=== PATIENT | male | born 1960 | race Caucasian/White ===

== ENCOUNTER → 2017-10-25 15:40 | Outpatient (CLI) | payer BC, SELFPAY ==
--- NOTE | 2017-10-25 10:20 | COLBX_PTH ---
PATIENT: EDMUNDO TALAMANTES LOC: [facility] U#:[id number] AGE/SX: 65/M ROOM: RE10/25/[address]: Dr. Brian Sherwood MD : 1960 BED: DIS: SPEC #: [id number] RECD: 10/25/17 15:37 STATUS: KEV LUIS #: [id number] MARY: 10/25/17 10:[address]: Brian Sherwood DEPT: SURGICAL PATHOLOGY RECD BY: Jourdan Mac ENTERED: 10/28/17 13:05 SP TYPE: COLON BX OTHR DR: Dr. Edmundo Mark MD [facility] Tissues: A - Transverse colon B - Sigmoid colon biopsy Procedures: Surgery Specimen Level IV HEADER OPERATION: Colonoscopy with polypectomy PRE-OP DIAGNOSIS: Screening / polyp TISSUE SUBMITTED: A ? Transverse colon polyp, rule out adenoma, B ? Sigmoid polyp, rule out adenoma MICROSCOPIC DIAGNOSIS A. Transverse colon, biopsy: Tubular adenoma. B. Sigmoid colon polyp, biopsy: Tubular adenoma. AM:austin 10/29/17 COMMENT B. Adenomatous change is not seen at the cauterized stalk margin. Case has been reviewed in consultation with Dr. Fabian who concurs with the above diagnosis. IDC:[id number] MICROSCOPIC DESCRIPTION Slides are reviewed. GROSS DESCRIPTION A - Received in fixative is one container labeled with the patient's name and designated transverse colon. The specimen consists of one irregular fragment of light delatorre soft tissue that measures 0.6 x 0.5 x 0.2 cm. The specimen is totally submitted in one cassette. B - Received in fixative is one container labeled with the patient's name and designated sigmoid colon. The specimen consists of a delatorre polyp measuring 1 x 1 x 0.5 cm. The presumed margin is inked. The specimen is trisected and totally submitted in one cassette. / AM:austin 10/28/17 TC:5 CPT: 44350 x2
== END ==
PROVIDERS: Family Provider Family Medicine; PCP Family Medicine; Visit Provider Internal Medicine Gastroenterology
DX: Z12.11 Encounter for screening for malignant neoplasm of colon (principal); K63.5 Polyp of colon
CPT/HCPCS: 88305

== ENCOUNTER → 2018-08-30 07:54 | Outpatient (CLI) | payer BC, SELFPAY ==
[2018-08-30 09:11] LABS: Anion Gap 5 (5-15); BUN 10 mg/dL (7-18); BUN/Creat Ratio 10.5 RATIO (10-20); Calcium,Total 8.8 mg/dL (8.5-10.1); Chloride 106 mmol/L (98-107); Cholesterol 241 mg/dL (200); Creatinine, Serum 0.95 mg/dL (0.70-1.30); EST Glomerular Filtration Rate 87 mL/min (>60); Est Glom Filt Rate - Afr Amer 105 mL/min (>60); Glucose 92 mg/dL (74-106); High Density Lipoprotein 48 mg/dL; PSA,Total - Annual Screen 0.55 ng/mL (0.00-4.00); Potassium 4.9 mmol/L (3.5-5.1); Sodium Level 142 mmol/L (136-145); Triglycerides 201 mg/dL; Very Low Density Lipoprotein 40 mg/dL (5-40)
== END ==
PROVIDERS: Family Provider Family Medicine; PCP Family Medicine; Referring Provider Family Medicine; Visit Provider Family Medicine
DX: R03.0 Elevated blood-pressure reading, without diagnosis of hypertension (principal); N40.0 Benign prostatic hyperplasia without lower urinary tract symptoms
CPT/HCPCS: 36415; 80048; 80061; 84153; G0103

== ENCOUNTER → 2019-09-04 07:22 | Outpatient (CLI) | payer BC, SELFPAY ==
[2019-09-04 09:22] LABS: Anion Gap 3 (5-15); BUN 13 mg/dL (7-18); BUN/Creat Ratio 13.3 RATIO (10-20); Calcium,Total 8.4 mg/dL (8.5-10.1); Chloride 105 mmol/L (98-107); Cholesterol 201 mg/dL (200); Creatinine, Serum 0.98 mg/dL (0.70-1.30); EST Glomerular Filtration Rate 84 mL/min (>60); Est Glom Filt Rate - Afr Amer 102 mL/min (>60); Glucose 96 mg/dL (74-106); High Density Lipoprotein 45 mg/dL; PSA,Total - Annual Screen 0.44 ng/mL (0.00-4.00); Sodium Level 139 mmol/L (136-145); Triglycerides 138 mg/dL; Very Low Density Lipoprotein 28 mg/dL (5-40)
== END ==
PROVIDERS: Family Provider Family Medicine; PCP Family Medicine; Referring Provider Family Medicine; Visit Provider Family Medicine
DX: Z13.220 Encounter for screening for lipoid disorders (principal); Z13.1 Encounter for screening for diabetes mellitus; N40.0 Benign prostatic hyperplasia without lower urinary tract symptoms
CPT/HCPCS: 36415; 80048; 80061; 84153; G0103

== ENCOUNTER → 2020-07-23 08:07 | Outpatient (CLI) | payer BC, SELFPAY ==
[2020-07-23 09:16] LABS: Anion Gap 5 (5-15); BUN 10 mg/dL (7-18); BUN/Creat Ratio 10.7 RATIO (10-20); Calcium,Total 8.7 mg/dL (8.5-10.1); Chloride 107 mmol/L (98-107); Cholesterol 198 mg/dL (200); Creatinine, Serum 0.93 mg/dL (0.70-1.30); EST Glomerular Filtration Rate 88 mL/min (>60); Est Glom Filt Rate - Afr Amer 107 mL/min (>60); Glucose 90 mg/dL (74-106); High Density Lipoprotein 40 mg/dL; Potassium 4.5 mmol/L (3.5-5.1); Sodium Level 141 mmol/L (136-145); Triglycerides 144 mg/dL; Very Low Density Lipoprotein 29 mg/dL (5-40)
[2020-07-23 09:30] LABS: Microalbumin,Random Urine 10.6 mg/L (NO RANGE EST.)
== END ==
PROVIDERS: PCP Family Medicine; Referring Provider Family Medicine; Visit Provider Family Medicine
DX: Z00.00 Encounter for general adult medical examination without abnormal findings (principal)
CPT/HCPCS: 36415; 80048; 80061; 82043

== ENCOUNTER → 2021-02-15 09:26 | Outpatient (CLI) | payer BC, SELFPAY ==
--- NOTE | 2021-02-15 09:29 | RAD_ITS ---
STUDY: X-RAY - LEFT ELBOW REASON FOR EXAM: Male, 61 years old. Elbow pain. TECHNIQUE: 3 view(s) of the elbow on 4 images. COMPARISON: None. FINDINGS: Normal visualized humerus, radius and ulna. Normal radiocapitellar and ulnotrochlear articulations. Ossification adjacent to the lateral epicondyles which may represent calcific tendinitis. RAD/Elbow min 3 Views IMPRESSION: No acute abnormality. Electronically Signed: Porter Hilliard MD at 14:01 EDT , Service support ,
== END ==
PROVIDERS: PCP Family Medicine; Referring Provider Family Medicine; Visit Provider Family Medicine
DX: M25.529 Pain in unspecified elbow (principal)
CPT/HCPCS: 73080

== ENCOUNTER → 2021-05-10 17:02 | Outpatient (CLI) | payer BC, SELFPAY | PROVIDERS: PCP Family Medicine; Visit Provider Family Medicine | DX: Z20.822 Contact with and (suspected) exposure to COVID-19 (principal) | CPT/HCPCS: 87635; U0005; U0003 ==

== ENCOUNTER 2021-10-10 14:58 | Outpatient (CLI) | payer BC, SELFPAY ==
--- NOTE | 2021-10-10 15:05 | ECHOCS_ITS ---
Reason For Study: MURMUR Procedure This was a 2D Doppler, Color Flow transthoracic echocardiogram. The study was technically difficult. Contrast injection was performed. Exam performed in department. Left Ventricle Normal LV size. Left ventricular systolic function is normal. The estimated ejection fraction is 65 %. Stage 3 diastolic dysfunction. No regional wall motion abnormalities noted. Right Ventricle Normal RV size. Normal systolic function. Atria Normal left atrium. Normal right atrium. Mitral Valve Normal mitral valve. Tricuspid Valve Normal tricuspid valve. Mild (1+) tricuspid valve insufficiency. Pulmonary artery systolic pressure is 42 mmHg. Aortic Valve Trisinus/trileaflet aortic valve. Pulmonic Valve Normal pulmonic valve. Great Vessels Normal aortic root. The pulmonary artery is normal size. Normal inferior vena cava. Pericardium/Pleural No pericardial effusion. Medication 22 gauge I.V. with prn adaptor inserted into right arm. Diluted definity 2.0ml given slow IV push to enhance endocardial definition. MMode/2D Measurements & Calculations LVIDd: 4.9 cm IVSd: 0.88 cm Ao root diam: 3.7 cm LVIDs: 3.0 cm LVPWd: 0.99 cm RVDd: 3.9 cm FS: 39.8 % LAV(MOD-bp): 56.7 ml LVAd ap4: 41.0 cm2 LVAd ap2: 31.2 cm2 LAV(MOD-bp) Indexed: 26.9 ml/m2 LVLd ap4: 8.9 cm LVLd ap2: 8.6 cm LAV(MOD-sp2): 57.3 ml EDV(MOD-sp4): 155.4 ml EDV(MOD-sp2): 93.6 ml LAV(MOD-sp4): 53.9 ml EDV(sp4-el): 160.4 ml EDV(sp2-el): 96.1 ml LVAs ap4: 15.3 cm2 LVAs ap2: 12.6 cm2 LVLs ap4: 6.1 cm LVLs ap2: 5.8 cm ESV(MOD-sp4): 31.8 ml ESV(MOD-sp2): 22.2 ml ESV(sp4-el): 32.7 ml ESV(sp2-el): 23.2 ml EF(MOD-sp4): 79.6 % EF(MOD-sp2): 76.3 % EF(sp4-el): 79.6 % SV(MOD-sp4): 123.7 ml SV(MOD-sp2): 71.4 ml SV(sp4-el): 127.7 ml LA A4 area: 19.9 cm2 LA dimension(2D): 3.9 cm RA A4 area: 18.1 cm2 Doppler Measurements & Calculations MV E max mike: 119.6 cm/sec Ao V2 max: 174.7 cm/sec LV V1 max: 167.2 cm/sec MV A max mike: 64.4 cm/sec Ao max P.2 mmHg LV V1 max P.2 mmHg MV E/A: 1.9 TR max mike: 305.3 cm/sec TR max P.3 mmHg ECHO/Echo Complete W/ Contrast Interpretation Summary Normal LV size. Left ventricular systolic function is normal. The estimated ejection fraction is 65 %. Stage 3 diastolic dysfunction. Pulmonary artery systolic pressure is 42 mmHg. Contrast injection was performed. Ordering Physician: Ayaz Mark Referring Physician: Ayaz Mark Performed By: Denisse Robison, ENRIKE, RVT
== END 2021-10-10 23:59 | disposition short-term general hospital (02) ==
LOC: CVS 15:03
PROVIDERS: PCP Family Medicine; Referring Provider Family Medicine; Visit Provider Family Medicine
DX: R01.1 Cardiac murmur, unspecified (principal)
CPT/HCPCS: 93306; Q9957; A4216; C8929

== ENCOUNTER 2021-12-11 06:42 | Outpatient (CLI) | payer BC, SELFPAY | END 2021-12-11 23:59 | disposition home or self-care (01) | PROVIDERS: PCP Family Medicine; Visit Provider Internal Medicine Critical Care Medicine | DX: G47.30 Sleep apnea, unspecified (principal) | CPT/HCPCS: 95806 ==

== ENCOUNTER → 2022-01-12 | Outpatient (CLI) | payer BC, SELFPAY ==
--- NOTE | 2022-01-12 10:34 | RAD_ITS ---
STUDY: X-RAY - LEFT ELBOW REASON FOR EXAM: Male, 62 years old. Pain. TECHNIQUE: 3 view(s) of the elbow. COMPARISON: 02/15/2021. FINDINGS: Normal visualized humerus, radius and ulna. Normal radiocapitellar and ulnotrochlear articulations. Small calcifications projected over the region of the lateral collateral ligament proximally, likely representing calcific tendinitis. 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 No other abnormality. Electronically Signed: Porter Hilliard MD at 11:11 EDT ,
== END | disposition home or self-care (01) ==
LOC: MTRAD 10:32
PROVIDERS: PCP Family Medicine; Referring Provider Family Medicine; Visit Provider Family Medicine
DX: M25.522 Pain in left elbow (principal)
CPT/HCPCS: 73080

== ENCOUNTER → 2022-09-14 | Outpatient (CLI) | payer BC, SELFPAY ==
[2022-09-14 17:10] LABS: PSA,Total - Annual Screen 1.25 ng/mL (0.00-4.00)
== END | disposition home or self-care (01) ==
LOC: LAB 15:29
PROVIDERS: PCP Family Medicine; Referring Provider Urology; Visit Provider Urology
DX: R35.1 Nocturia (principal); R53.83 Other fatigue
CPT/HCPCS: 84153; 84403; G0103

== ENCOUNTER 2023-10-18 19:24 | Emergency (ER) | payer BC, SELFPAY ==
[2023-10-18 19:26] VITALS: BP 148/69; PULSE 89; RESP 18; TEMP 36.6; O2SAT 95; BMI 34.9
[2023-10-18 19:59] VITALS: O2SAT 98
--- NOTE | 2023-10-18 20:00 | RAD_ITS ---
EXAM: XR CHEST, 1 VIEW CLINICAL INDICATION: chest pain TECHNIQUE: Frontal view of the chest. COMPARISON: No relevant prior studies available. FINDINGS: LUNGS AND PLEURAL SPACES: No significant abnormality. No consolidation or edema. No pneumothorax. No effusion. HEART: No significant abnormality. Cardiac silhouette not enlarged. MEDIASTINUM: Central airways and mediastinal contour are unremarkable. BONES/JOINTS: No significant abnormality. No acute fracture. SOFT TISSUES: No significant abnormality. RAD/Chest 1 View (Portable) IMPRESSION: No radiographic evidence of acute cardiopulmonary disease. Electronically Signed: Abner Avilez DO at 20:30 EST ,
--- NOTE | 2023-10-18 20:03 | EDS_ITS ---
HPI <LESLIE Lopez - Last Filed: 10/18/23 22:03> History of Present Illness Chief Complaint: Chest Pain Narrative Narrative: 63-year-old male with no significant past medical history developed midsternal chest pain around 5:30 PM while doing laundry. He states it feels like a throbbing sensation and occasionally radiates towards the left shoulder. No pain in the jaw or down the arm. No shortness of breath, nausea or vomiting, or diaphoresis. He has had a lingering cough since when he had a viral illness but it is not worsened and he has no recent fever. He smokes about 6 cigarettes a day. He has no personal cardiac history. He states he had normal stress testing about 10 years ago. No family cardiac history. No history of DVT/PE or risk factors. PFSH <LESLIE Lopez - Last Filed: 10/18/23 22:03> [facility], [facility] Home Medications doxazosin 4 mg tablet 4 mg PO DAILY 11/08/21 [History Last Taken Unknown] tadalafil 5 mg tablet 5 mg PO DAILY 11/08/21 [History Last Taken Unknown] Allergy/AdvReac Type Severity Reaction Status Date / Time acetaminophen AdvReac Hives Verified 10/18/23 19:28 Surgical History (Reviewed 12/22/21 @ 14:33 by Gabbi Foreman BREAKER MACHINE TENDER, BREAKER MACHINE TENDER-C) H/O removal of cyst Social History Smoking Status: Former smoker quit date: 09/09/11 pack-years: 34 ROS <LESLIE Lopez - Last Filed: 10/18/23 22:03> ROS ED ROS Narrative Constitutional: Negative for fever, chills, malaise. CVS: Positive for chest pain. Negative for syncope. Respiratory: Positive for cough. Negative for shortness of breath. GI: Negative for abdominal pain, nausea, vomiting. Neuro: Negative for headache. EXAM <LESLIE Lopez - Last Filed: 10/18/23 22:03> Physical Exam Narrative Exam Narrative: CONST: Patient sitting in no acute distress. EYES: Normal inspection. NECK: Normal inspection. RESP: No respiratory distress, CTAB. CVS: Regular rate and rhythm, no murmur, no gallop. ABD: Soft and nontender, no guarding or rebound, nondistended. SKIN: Color normal, no rash, warm, dry, intact. EXTREMITIES: Normal appearance, no pedal edema. NEURO: Oriented x4. PSYCH: Normal affect. Const Vital Signs: 10/18/23 19:26 10/18/23 19:59 Temperature 97.9 F Temperature Source Temporal Pulse Rate 89 Respiratory Rate 18 Blood Pressure 148/69 H Blood Pressure Mean 95 Pulse Ox 95 98 Oxygen Delivery Method Room Air Room Air <Mitch Dumont MD - Last Filed: 10/18/23 22:52> Physical Exam Const Vital Signs: 10/18/23 19:26 10/18/23 19:59 Temperature 97.9 F Temperature Source Temporal Pulse Rate 89 Respiratory Rate 18 Blood Pressure 148/69 H Blood Pressure Mean 95 Pulse Ox 95 98 Oxygen Delivery Method Room Air Room Air MDM <LESLIE Lopez - Last Filed: 10/18/23 22:03> [facility] MDM Narrative Medical decision making narrative: History gathered from: Patient and Patient presents with chest pain that radiates toward his left shoulder that started at 5:30 PM. He appears well and nontoxic with stable vital signs. Normal cardiopulmonary exam. No chest or abdominal tenderness. No clinical signs of DVT. CBC and BMP are unremarkable. EKG is sinus rhythm with no ischemic changes. Troponin is 10, delta pending. CXR shows no acute process. Patient was treated with aspirin 325 mg and plan is if serial cardiac enzymes are negative he can follow-up for outpatient stress test. Lab Data Attestation: I reviewed the patient's lab results. Labs: Laboratory Results - last 24 hr 10/18/23 10/18/23 19:55 22:00 WBC 11.6 H RBC 4.51 L Hgb 15.3 Hct 43.7 MCV 96.9 H MCH 33.9 H MCHC 35.0 RDW Std Deviation 44.3 H RDW Coeff of Josey 12.4 Plt Count 277 MPV 9.6 Immature Gran % (Auto) 0.300 Neut % (Auto) 74.5 H Lymph % (Auto) 12.8 L [place] % (Auto) 10.8 H Eos % (Auto) 1.0 Baso % (Auto) 0.6 Absolute Neuts (auto) 8.6 H Absolute Lymphs (auto) 1.48 Nucleated RBC % 0 Sodium 139 Potassium 3.5 Chloride 107 Carbon Dioxide 25.0 Anion Gap 7 BUN 9 Creatinine 0.92 Estim Creat Clear Calc 98.74 Est GFR (MDRD) Af Amer 107 Est GFR (MDRD) Non-Af 89 BUN/Creatinine Ratio 9.8 L Glucose 140 H Calcium 9.2 Troponin I High Sens 10 10 Radiography Diagnostic Testing: Clinical Impression(s) from Imaging Studies Chest X-Ray 10/18/23 20:00 IMPRESSION: No radiographic evidence of acute cardiopulmonary disease. Electronically Signed: Abner Avilez DO at 20:30 EST , ED attending interpretation of 1-view chest x-ray shows normal heart size, no acute infiltrate, edema, or effusion. EKG Initial EKG: Attestation: I personally reviewed and interpreted this EKG as follows: Interpretation: Sinus Rhythm and No Acute Injury Pattern Comments: Normal sinus rhythm 84 bpm Normal intervals, no acute ischemic changes <Mitch Dumont MD - Last Filed: 10/18/23 22:52> MDM MDM Narrative Medical decision making narrative: History gathered from: Patient and Patient presents with chest pain that radiates toward his left shoulder that started at 5:30 PM. He appears well and nontoxic with stable vital signs. Normal cardiopulmonary exam. No chest or abdominal tenderness. No clinical signs of DVT. CBC and BMP are unremarkable. EKG is sinus rhythm with no ischemic changes. Troponin is 10, delta pending. CXR shows no acute process. Patient was treated with aspirin 325 mg and plan is if serial cardiac enzymes are negative he can follow-up for outpatient stress test. Dr. Dumont: I have personally performed a face to face assessment of the patient and have reviewed the MARIELLA Note. I performed a substantive portion of the visit including all aspects of the following. My love findings include: History is chest pain. Exam is afebrile. Vital signs noted. Regular rate and rhythm. Lungs clear to auscultation bilaterally. Abdomen soft nontender with normoactive bowel sounds. Medical Decision Making: Check EKG. Check chest x-ray. Chest x-ray 1 view interpreted by myself independently shows no evidence of pneumothorax or pneumonia. I reviewed the radiology report which confirms my independent interpretation. Serial troponins show no delta as initial is 10 and repeat is 10 at 2 hours. At this point in time, I feel he can be discharged safely home with follow-up. Blood pressure is now 121 systolic with a heart rate in the 70s. Disposition is discharged home in stable condition. Other additions or changes: [None] History & Record Review Discussion w/independent historian: Patient and Family Lab Data Labs: Laboratory Results - last 24 hr 10/18/23 10/18/23 19:55 22:00 WBC 11.6 H RBC 4.51 L Hgb 15.3 Hct 43.7 MCV 96.9 H MCH 33.9 H MCHC 35.0 RDW Std Deviation 44.3 H RDW Coeff of Josey 12.4 Plt Count 277 MPV 9.6 Immature Gran % (Auto) 0.300 Neut % (Auto) 74.5 H Lymph % (Auto) 12.8 L [place] % (Auto) 10.8 H Eos % (Auto) 1.0 Baso % (Auto) 0.6 Absolute Neuts (auto) 8.6 H Absolute Lymphs (auto) 1.48 Nucleated RBC % 0 Sodium 139 Potassium 3.5 Chloride 107 Carbon Dioxide 25.0 Anion Gap 7 BUN 9 Creatinine 0.92 Estim Creat Clear Calc 98.74 Est GFR (MDRD) Af Amer 107 Est GFR (MDRD) Non-Af 89 BUN/Creatinine Ratio 9.8 L Glucose 140 H Calcium 9.2 Troponin I High Sens 10 10 Radiography Diagnostic Testing: Clinical Impression(s) from Imaging Studies Chest X-Ray 10/18/23 20:00 IMPRESSION: No radiographic evidence of acute cardiopulmonary disease. Electronically Signed: Abner Avilez DO at 20:30 EST , Discharge Plan Triage Chief Complaint: Chest Pain ED Midlevel Provider: Radha Coello ED Provider: Mitch Dumont Dx/Rx/DC Orders Clinical Impression: Chest pain Instructions: ED Chest Pain, Uncertain Cause Prescriptions: No Action doxazosin 4 mg tablet 4 mg PO DAILY tadalafil 5 mg tablet 5 mg PO DAILY Primary Care Provider: Ayaz Mark Referrals: Ayaz Mark MD [Primary Care Provider] - 3-5 Days Activity Restrictions/Additional Instructions: Follow-up with your primary care provider for outpatient stress testing. Return with increased pain, new or worsening symptoms. Disposition Disposition: Home, Self Care
[2023-10-18 20:24] LABS: Absolute Lymphocyte Count 1.48 X10^3/uL (0.83-4.51); Absolute Neutrophil Count 8.6 X10^3/uL (2.0-7.7); Basophil# 0.07 X10^3/uL; Basophil% 0.6 % (0-1); Eosinophil# 0.12 X10^3/uL; Hematocrit 43.7 % (40-54); Hemoglobin 15.3 g/dL (13.0-16.5); Lymphocyte # 1.48 X10^3/ul (0.83-4.51); Lymphocyte % 12.8 % (19-41); Mean Corpuscular Hgb 33.9 pg (27.0-32.0); Mean Corpuscular Volume 96.9 fL (80-94); Mean Platelet Vol. 9.6 fl (6.2-12.0); Monocyte# 1.25 X10^3/uL; Monocyte% 10.8 % (0-10); NRBC Flagged by Analyzer 0 % (0-5); Neutrophil # 8.61 X10^3/uL (2.7-7.7); Neutrophil % 74.5 % (47-70); Platelet Count 277 K/mm3 (150-450); RBC Distribution Width CV 12.4 % (11.6-14.6); RBC Distribution Width SD 44.3 fl (35.1-43.9); Red Blood Count 4.51 M/mm3 (4.6-6.2); White Blood Count 11.6 K/mm3 (4.4-11.0)
--- OUTSIDE RECORDS SUMMARY | 2023-10-18 20:27 | XMS RPT_ITS | CCD ---
Author Name Unknown Address [address] [place] [address] Organization [facility] Care Team Providers Care Box Puller Name Role Phone None, No PCP Unavailable Unavailable Unavailable Unavailable MD KAREY LEE Attending Unavailabl e LEEMD KAREY Rey Referring Unavailabl e MD KAREY LEE Attending Unavailabl e MD KAREY LEE Referring Unavailabl e MD KAREY LEE Attending Unavailabl e LEEMD KAREY Rey Referring Unavailabl e MD KAREY LEE Referring Unavailabl e MD KAREY LEE Attending Unavailabl e Allergies Allergy Classification Reported Allergen(s) Allergy Type Date of Onset Reaction(s) Facility (8 sources) Acetaminophen; Translations: [acetaminophen] Drug Allergy JE-Tauodii-Gz hland Work Phone: Medications Completed/Discontinued Medications Medication Drug Class(es) Dates Sig (Normalized) Sig (Original) 24 hr alfuzosin hydrochloride 10 mg extended release oral tablet (4 sources) alpha-Adrenergic Balta Start: 09-12-2022 take 1 tablet by mouth once daily Alfuzosin HCl ER 10 MG Oral Tablet Extended Release 24 Hour Take 1 tablet daily Quantity: 30 Refills: 11 Ordered: 12-Sep-2022 Karey Lee II, MD Start : 12-Sep-2022 Active Doxazosin (2 sources) alpha-Adrenergic Balta Cardura 4 MG Oral Tablet Quantity: 0 Refills: 0 Ordered: 12-Sep-2022 DO Active Problems Problem Classification Problem Date Documented Da te Episodic/Chronic Genitourinary symptoms and ill-defined conditions (6 sources) Nocturia; Translations: [Nocturia] Episodic Hyperplasia of prostate (4 sources) Benign prostatic hypertrophy with outflow obstruction; Translations: [Benign localized hyperplasia of prostate with urinary obstruction and other lower urinary tract symptoms (LUTS)] Chronic Malaise and fatigue (4 sources) Fatigue; Translations: [Other malaise and fatigue] Episodic Other male genital disorders (4 sources) Male erectile dysfunction, unspecified; Translations: [Erectile dysfunction] Chronic Results Test Name Value Interpretation Reference Range Facil ity Vital Signs Date Time Vital Sign Value Performing Clinician Faci lity 12-27-2022 15:18-0400 Body mass index (BMI) [Ratio] 33.37 kg/m2 No PCP None IH-Awygncc-Qbkebyv d HC 232 DO Work Phone: 12-27-2022 15:18-0400 Body surface area Derived from formula 2.18 m2 No PCP None PY-Kivbjym-Jkirqmm d HC 232 DO Work Phone: 12-27-2022 15:18-0400 Body weight 102.51 kg No PCP None DW-Pgkiopr-Yoxhv an d HC 232 DO Work Phone: 12-27-2022 15:18-0400 Respiratory rate 16 /min No PCP None KT-Ogoozcg-Gjlb heidi d HC 232 DO Work Phone: 10-17-2022 15:43-0500 Body mass index (BMI) [Ratio] 33.82 kg/m2 No PCP None HY-Nlnfljy-Zdchosy Work Phone: 10-17-2022 15:43-0500 Body surface area Derived from formula 2.19 m2 No PCP None ZY-Wkhzkok-Nfbfhaa Work Phone: 10-17-2022 15:43-0500 Body weight 103.87 kg No PCP None VI-Opcyjvy-Vhaeh nd Work Phone: 10-17-2022 15:43-0500 Respiratory rate 16 /min No PCP None KZ-Dtrugdc-Gwft and Work Phone: 09-12-2022 13:09-0500 Body height 175.26 cm No PCP None KX-Eqriqvz-Cfpph nd Work Phone: 09-12-2022 13:09-0500 Body mass index (BMI) [Ratio] 34.26 kg/m2 No PCP None EU-Empgfpj-Wiarclf Work Phone: 09-12-2022 13:09-0500 Body surface area Derived from formula 2.2 m2 No PCP None MO-Tjdqbtj-Jphmern Work Phone: 09-12-2022 13:09-0500 Body weight 105.24 kg No PCP None ZZ-Hgycxse-Fveay nd Work Phone: 09-12-2022 13:09-0500 Respiratory rate 16 /min No PCP None YP-Njhunbl-Nmcj and Work Phone: Encounters Encounter Date Encounter Type Care Provider Facility Start: 12-27-2022 Office outpatient vi sit 15 minutes No PCP None IM-Bypvaqj-Xibkjezm HC 232 DO Work Phone: Start: 12-27-2022 ambulatory MD KAREY LEE Fa cility:[id number] Start: 11-22-2022 Office outpatient vi sit 25 minutes No PCP None SU-Veawgmh-Izvgycof HC 232 DO Work Phone: Start: 11-22-2022 ambulatory MD KAREY LEE Fa cility:[id number] Start: 10-17-2022 Office outpatient vi sit 25 minutes No PCP None GQ-Vmehspn-Awnzfgz Work Phone: Start: 10-17-2022 ambulatory MD KAREY LEE Fa cility:[id number] Start: 09-12-2022 Office outpatient ne w 45 minutes No PCP None HH-Rmmjwcf-Tdlwiyr Work Phone: Start: 09-12-2022 ambulatory MD KAREY LEE Fa cility:[id number] Procedures Date Procedure Procedure Detail Performing Clinician Excision of cyst No PCP None Plan of Treatment Date Care Activity Detail Author Start: 12-27-2022 FUV, Provider: Karey Lee II, Status: Pen, Time: 3:15 PM FUV, Provider: Karey Lee II, Status: Pen, Time: 3:15 PM CG-Mpshtfi-Ktilpxmj HC 232 DO Work Phone: Start: 11-22-2022 JARVIS, Provider : Karey Lee II, Status: Pen, Time: 10:15 AM JARVIS, Provider: Karey Lee II, Status: Pen, Time: 10:15 AM BE-Bhbgdwk-Mromaup Work Phone: Start: 10-17-2022 FUV, Provider: Karey Lee II, Status: Pen, Time: 3:30 PM FUV, Provider: Karey Lee II, Status: Pen, Time: 3:30 PM KG-Dbgxmaw-Uykscwz Work Phone: Payers Date Payer Category Payer Unknown [id number] [id number]. [id number] 1960 Unknown [id number] 2.16. [id number] 1960 Unknown [id number] 2.16. [id number] 1960 Unknown [id number] 2.16. [id number] Unknown DERRICK Unknown [id number] Social History Date Type Detail Facility Former smoker Former smoker KV-Kvaotpu-Sy hland Work Phone: Chief complaint Narrative - Reported 11-22-2022 Note Date & Type Note Facility 11-22-2022 Chief complaint Narrative - Reported An interactive audio and video telecommunication system which permits real time communications between the patient (at the originating site) and provider (at the distant site) was utilized to provide this telehealth service.Verbal consent was requested and obtained from JUAN TALAMANTES on this date, 11/22/2022 10:15 AM , for a telehealth visit.1 MONTH F/U W/ UA and PVR WN-Gjvbovl-Cgabqoiu HC 232 DO Work Phone: History of Present illness Narrative 10-01-2022 Note Date & Type Note Facility 10-01-2022 History of Presen t illness Narrative Patient is here for medication check and lab results. He was given Uroxatral last visit and states it has helped his urinary sx..Nocturia x 1, depending on fluid intake.. He did stop his Cardura last visit. Most recent PSA was 1.25 on 10/01. ED is chronic. Libido is diminished and mild fatigue. Most recent T level was 573 on 10/01. CQ-Jaxrioo-Gykjlep Work Phone: History of Present illness Narrative 10-01-2022 Note Date & Type Note Facility 10-01-2022 History of Presen t illness Narrative Patient is here for 1 month f/u w/ medication check, UA, and PVR. He was given Gemtesa and states this was very helpful but he cannot afford it.. He is also taking Uroxatral. Most recent PSA was 1.25 on 10/01. ED is chronic. Libido is diminished and mild fatigue. Most recent T level was 573 on 10/01. AU-Yturncq-Attaxgki HC 232 DO Work Phone: History of Present illness Narrative 10-01-2022 Note Date & Type Note Facility 10-01-2022 History of Presen t illness Narrative Patient is here for 1 month f/u w/ w/ UA for hx of microhematuria. No recent workup. Chronic BPH sx are mild and stable. Denies urgency and frequency. Denies dysuria. Denies hematuria. Nocturia x1. He was started on Trospium last visit and states. He is also taking Uroxatral. He has failed Gemtesa. Most recent PSA was 1.25 on 10/01. ED is chronic. Sildenafil PRN. CG-Aotviya-Cnwzzbxw HC 232 DO Work Phone: History of Present illness Narrative 08-27-2022 Note Date & Type Note Facility 08-27-2022 History of Presen t illness Narrative Patient is here to establish for ED..Patient is taking Sildenafil, has tried Cialis in the past..This is helpful. Libido is diminished. Mild Fatigue. Chronic BPH with LUTs, sx are mild and stable..Caffeine makes LUTs worse..Patient is taking Doxazosin. No hematuria, No dysuria..Nocturia x 1, depending on fluid intake..Some hesitancy..PSA 0.44 (08/27) ZP-Nklhmwd-Ikmsvgw Work Phone: Chief Complaint Erectile Dysfunctionmedication check and lab results1 month w/ UA Family History No Family History Records FoundUnknown Family Member Name Dates Details No pertinent family history: Mother, Father(V49.89, Z78.9) Status:Active Unknown Family Member Name Dates Details No pertinent family history: Mother, Father(V49.89, Z78.9) Status:Active Unknown Family Member Name Dates Details No pertinent family history: Mother, Father(V49.89, Z78.9) Status:Active Unknown Family Member Name Dates Details No pertinent family history: Mother, Father(V49.89, Z78.9) Status:Active Summary Purpose Advance Directives No Advanced Directives Records FoundNo Advanced Directives Records Found Additional Source Comments (unrecognized sect ion and content) No Status Records FoundNo Status Records Found INFORMATION SOURCE (unrecogn ized section and content) DATE CREATED AUTHOR AUTHOR'S CLINTON GONZALEZ 12/28/2022 [employer] FOR RECORDS PERTAINING TO PATIENTS WHO ARE OR HAVE BEEN ENROLLED IN A CHEMICAL DEPENDENCY/SUBSTANCEABUSE PROGRAM, SOME INFORMATION MAY BE OMITTED. This clinical summary was aggregated from multiple sources. Caution should be exercised in using it in the provision of clinical care. This summary normalizes information from multiple sources, and as a consequence, information in this document may materially change the coding, format and clinical context of patient data. In addition, data may be omitted in some cases. CLINICAL DECISIONS SHOULD BE BASED ON THE PRIMARY CLINICAL RECORDS. [facility] [employer] provides no warranty or guarantee of the accuracy or completeness of information in this document.
[2023-10-18 20:37] LABS: Anion Gap 7 (5-15); BUN 9 mg/dL (7-18); BUN/Creat Ratio 9.8 RATIO (10-20); Calcium,Total 9.2 mg/dL (8.5-10.1); Chloride 107 mmol/L (98-107); Creatinine, Serum 0.92 mg/dL (0.70-1.30); EST Glomerular Filtration Rate 89 mL/min (>60); Est Glom Filt Rate - Afr Amer 107 mL/min (>60); Estimated Creatinine Clearance 98.74 ml/min; Glucose 140 mg/dL (74-106); Potassium 3.5 mmol/L (3.5-5.1); Sodium Level 139 mmol/L (136-145); Troponin-I HS (w/2H Reflex) 10 pg/mL (3.0-78.0)
[2023-10-18] MEDS: Aspirin 325 MG Tablet PO (20:59)
[2023-10-18 22:03] LABS: Reflex Troponin-HS? (from REC) Y
[2023-10-18 22:34] LABS: Troponin-I HS 10 pg/mL (3.0-78.0)
[2023-10-18 23:11] VITALS: BP 107/69
== END 2023-10-18 23:12 | disposition home or self-care (01) ==
PROVIDERS: Emergency Provider Emergency Medicine; PCP Family Medicine; Visit Provider Emergency Medicine
DX: R07.9 Chest pain, unspecified (principal); Z87.891 Personal history of nicotine dependence
CPT/HCPCS: 71045; 80048; 84484; 85025; 93005; 99284; A4216

== ENCOUNTER → 2025-01-27 | Outpatient (CLI) | payer BC, SELFPAY ==
--- NOTE | 2025-01-27 17:11 | RAD_ITS ---
PROCEDURE: CERV SPINE 4 OR 5 VIEWS 01/27/2025 REASON FOR EXAM: CERVICALGIA TECHNIQUE: 6 views of the cervical spine. AP, lateral, bilateral oblique, open-mouth odontoid and swimmer's COMPARISON: None available FINDINGS: Cervical spine is visualized on the lateral view from the skull base to C7. The C7-T1 alignment appears grossly within limits on the swimmer's view. No fracture or malalignment identified. No prevertebral soft tissue swelling. C5-6 [id number] disc space narrowing with uncovertebral hypertrophic degenerative changes. Anterior osteophyte formation. Appearance of mild bilateral osseous foraminal narrowing. The apices appear clear. Rvxs-akbwwnm-odmp-right appearing carotid calcification suggested. RAD/Cerv Spine 4 or 5 Views IMPRESSION: C5-6 spondylosis/discogenic change as above. Reading Location: [id number]
[2025-01-27 18:02] LABS: Absolute Lymphocyte Count 1.21 X10^3/uL (0.83-4.51); Absolute Neutrophil Count 6.2 X10^3/uL (2.0-7.7); Basophil# 0.07 X10^3/uL; Basophil% 0.8 % (0-1); Eosinophils% 2.3 % (0-5); Hematocrit 39.4 % (40-54); Hemoglobin 14.2 g/dL (13.0-16.5); Lymphocyte # 1.21 X10^3/ul (0.83-4.51); Lymphocyte % 13.6 % (19-41); Mean Corpuscular Hgb 36.3 pg (27.0-32.0); Mean Corpuscular Volume 100.8 fL (80-94); Mean Platelet Vol. 10.1 fl (6.2-12.0); Monocyte# 1.21 X10^3/uL; Monocyte% 13.6 % (0-10); NRBC Flagged by Analyzer 0 % (0-5); Neutrophil # 6.16 X10^3/uL (2.7-7.7); Neutrophil % 69.5 % (47-70); Platelet Count 242 K/mm3 (150-450); RBC Distribution Width CV 12.2 % (11.6-14.6); RBC Distribution Width SD 45.5 fl (35.1-43.9); Red Blood Count 3.91 M/mm3 (4.6-6.2); White Blood Count 8.9 K/mm3 (4.4-11.0)
[2025-01-27 18:23] LABS: Erythrocyte Sedimentation Rate 18 mm/hr (0-20)
[2025-01-27 18:33] LABS: Color, Urine Yellow (Yellow); Glucose, Dipstick Normal (Normal); Ketone-Dipstick Negative (Negative); Leukocyte Esterase-Dipstick Negative /ul (Negative); Nitrite-Dipstick Negative (Negative); Occult Blood-Urine 10 /ul (Negative); Protein-Dipstick 15 mg/dl (Negative); Urine Bilirubin Dipstick Negative (Negative); Urine Clarity Clear (Clear); Urine Urobilinogen Normal (Normal)
[2025-01-28 12:52] LABS: ALB/GLOB Ratio 1.4 RATIO (0.9-2.4); AST(SGOT) 41 U/L (<=37); Alanine Aminotransfer ALT/SGPT 30 U/L (<=46); Albumin, Serum 4.2 g/dL (3.4-4.8); Alkaline Phosphatase 78 U/L (40-129); Anion Gap 15 (5-15); BUN 10 mg/dL (4-19); BUN/Creat Ratio 15.1 RATIO (10-20); CRP 9.44 mg/L (0.0-3.0); Carbon Dioxide 22.8 mmol/L (21.0-32.0); Chloride 103 mmol/L (98-108); Creatinine, Serum 0.65 mg/dL (0.70-1.20); EST Glomerular Filtration Rate 106 (>60); Glucose 99 mg/dL (70-99); Magnesium 1.9 mg/dL (1.5-2.2); PSA,Total - Annual Screen 0.63 ng/mL (0.02-4.00); Potassium 3.6 mmol/L (3.3-5.1); Protein, Total 7.2 g/dL (5.9-8.4); Sodium Level 140 mmol/L (133-145); Total Bilirubin 0.34 mg/dL (0.00-1.30); Vitamin B12 830 pg/mL (180-914); Vitamin D,25 Hydroxy 27.4 ng/mL (30-100)
== END | disposition home or self-care (01) ==
LOC: MTLAB 17:02
PROVIDERS: PCP Family Medicine; Referring Provider Family Medicine; Visit Provider Family Medicine
DX: R10.9 Unspecified abdominal pain (principal); R25.1 Tremor, unspecified; M54.2 Cervicalgia; Z12.5 Encounter for screening for malignant neoplasm of prostate
CPT/HCPCS: 36415; 72050; 80053; 81002; 82306; 82607; 83735; 84153; 84403; 84443; 85025; 85652; 86140; G0103